=== PATIENT | female | born 1965 | race Two or more races ===

== ENCOUNTER 2019-12-01 11:05 | Outpatient (CLI) | payer OTHER | END 2019-12-01 11:07 | disposition home or self-care (01) | LOC: RAD 11:05 → MAMO-SONO 12-02 11:15 | PROVIDERS: ATTEND Family Medicine | DX: M25.511 Pain in right shoulder (principal); M25.611 Stiffness of right shoulder, not elsewhere classified ==

== ENCOUNTER 2019-12-02 11:34 | Outpatient (CLI) | payer OTHER | END 2019-12-02 11:43 | disposition home or self-care (01) | LOC: SONOGRAMA 11:34 | PROVIDERS: ATTEND Family Medicine | DX: M25.511 Pain in right shoulder (principal); M25.611 Stiffness of right shoulder, not elsewhere classified ==

== ENCOUNTER 2021-05-21 11:26 | Outpatient (CLI) | payer OTHER | END 2021-05-21 11:35 | disposition home or self-care (01) | LOC: SONOGRAMA 11:26 | PROVIDERS: ATTEND Internal Medicine Endocrinology, Diabetes & Metabolism | DX: E03.8 Other specified hypothyroidism (principal) ==

== ENCOUNTER → 2022-10-17 | Emergency (ER) | payer OTHER | END | disposition left against medical advice (07) | LOC: ER 00:07 | DX: Z53.21 Procedure and treatment not carried out due to patient leaving prior to being seen by health care provider (principal) ==

== ENCOUNTER 2022-11-05 11:41 | Outpatient (CLI) | payer OTHER | END 2022-11-05 11:50 | disposition home or self-care (01) | LOC: MAMO-SONO 11:41 | DX: Z12.31 Encounter for screening mammogram for malignant neoplasm of breast (principal) ==